=== PATIENT | male | born 1970 | race African-American/Black ===

== ENCOUNTER 2017-07-16 14:54 | Emergency (ER) | payer OTHER ==
[2017-07-16 15:46] LABS: ADD MAN DIFF? NO
[2017-07-16] MEDS: IV NORMAL SALINE 1000ML BAG 1,000 ML IV (15:47)
[2017-07-16] MEDS: diphenhydrAMINE 50 MG/ML VIAL IVP (15:48)
[2017-07-16] MEDS: DEXAMETHASONE SOD PHOS 20 MG/5 ML VIAL. IV (15:48)
[2017-07-16 15:50] LABS: BASO # 0.1 x10^3/uL (0.0-0.2); BASO % 1 % (0-3); EOS # 0.1 x10^3/uL (0.0-0.7); EOS % 1 % (0-3); HEMATOCRIT 37.2 % (39.0-53.0); HEMOGLOBIN 12.4 g/dL (13.0-17.5); LYMPH # 2.4 x10^3/uL (1.0-4.8); LYMPH % 18 % (24-48); MEAN CORPUSCULAR HEMOGLOBIN 32 pg (25-35); MEAN CORPUSCULAR HGB CONC 33 g/dL (31-37); MEAN CORPUSCULAR VOLUME 97 fL (79-100); MONO # 0.5 x10^3/uL (0.0-1.1); MONO % 4 % (0-9); NEUT % 77 % (31-73); PLATELET COUNT 277 x10^3/uL (140-400); RED BLOOD COUNT 3.84 x10^6/uL (4.30-5.70); RED CELL DISTRIBUTION WIDTH 12.5 % (11.5-14.5)
[2017-07-16] MEDS: ALBUTEROL SULFATE 2.5 MG/3 ML NEBU. NEB (15:55)
[2017-07-16 16:00] LABS: ANION GAP 9 (6-14); BLOOD UREA NITROGEN 14 mg/dL (8-26); CALCIUM 9.4 mg/dL (8.5-10.1); CARBON DIOXIDE 29 mmol/L (21-32); CHLORIDE 106 mmol/L (98-107); CREATININE 1.1 mg/dL (0.7-1.3); GFR 86.4; GLUCOSE 126 mg/dL (70-99); POTASSIUM 3.5 mmol/L (3.5-5.1); SODIUM 144 mmol/L (136-145)
== END 2017-07-16 17:13 | disposition home or self-care (01) ==
LOC: ER 14:54
DX: J18.9 Pneumonia, unspecified organism (principal); I10 Essential (primary) hypertension; Z86.73 Personal history of transient ischemic attack (TIA), and cerebral infarction without residual deficits
CPT/HCPCS: 36415; 71045; 80048; 85025; 93005; 96361; 96374; 96375; 99285-25; J1100; J1200; J7030; J7613

== ENCOUNTER 2017-10-27 20:13 | Emergency (ER) | payer OTHER ==
[2017-10-27 20:36] LABS: POC GLUCOSE 86 mg/dL (70-99)
[2017-10-27 20:46] LABS: ADD MAN DIFF? NO
[2017-10-27 20:51] LABS: BASO # 0.1 x10^3/uL (0.0-0.2); BASO % 1 % (0-3); EOS # 0.1 x10^3/uL (0.0-0.7); EOS % 1 % (0-3); HEMATOCRIT 36.3 % (39.0-53.0); HEMOGLOBIN 12.3 g/dL (13.0-17.5); LYMPH # 3.9 x10^3/uL (1.0-4.8); LYMPH % 32 % (24-48); MEAN CORPUSCULAR HEMOGLOBIN 34 pg (25-35); MEAN CORPUSCULAR HGB CONC 34 g/dL (31-37); MEAN CORPUSCULAR VOLUME 99 fL (79-100); MONO # 0.7 x10^3/uL (0.0-1.1); MONO % 6 % (0-9); NEUT # 7.5 x10^3uL (1.8-7.7); NEUT % 61 % (31-73); PLATELET COUNT 258 x10^3/uL (140-400); RED BLOOD COUNT 3.68 x10^6/uL (4.30-5.70); RED CELL DISTRIBUTION WIDTH 12.6 % (11.5-14.5); WHITE BLOOD COUNT 12.3 x10^3/uL (4.0-11.0)
[2017-10-27] MEDS: IV NORMAL SALINE 1000ML BAG 1,000 ML IV (20:53)
[2017-10-27 20:58] LABS: PROTHROMBIN TIME PATIENT 12.8 SEC (11.7-14.0)
[2017-10-27 20:59] LABS: ANION GAP 9 (6-14); BLOOD UREA NITROGEN 13 mg/dL (8-26); BUN/CREATININE RATIO 11 (6-20); CALCIUM 8.8 mg/dL (8.5-10.1); CARBON DIOXIDE 28 mmol/L (21-32); CHLORIDE 105 mmol/L (98-107); CREATININE 1.2 mg/dL (0.7-1.3); GFR 78.2; GLUCOSE 102 mg/dL (70-99); POTASSIUM 3.3 mmol/L (3.5-5.1); SODIUM 142 mmol/L (136-145)
[2017-10-27 21:07] LABS: ALBUMIN 3.6 g/dL (3.4-5.0); ALBUMIN/GLOBULIN RATIO 0.9 (1.0-1.7); ALK PHOS 94 U/L (46-116); ALT (SGPT) 21 U/L (16-63); AST (SGOT) 20 U/L (15-37); TOTAL BILIRUBIN 0.3 mg/dL (0.2-1.0); TOTAL PROTEIN 7.4 g/dL (6.4-8.2)
[2017-10-27 23:43] LABS: BILIRUBIN,URINE NEGATIVE (NEG); CLARITY,URINE CLEAR; COLOR,URINE STRAW; GLUCOSE,URINE NEGATIVE (NEG)
[2017-10-27 23:44] LABS: NITRITE,URINE NEGATIVE (NEG); PH,URINE 6.5; PROTEIN,URINE NEGATIVE (NEG-TRACE); UROBILINOGEN,URINE 0.2 mg/dL (0.2 mg/dL)
[2017-10-27 23:45] LABS: BACTERIA,URINE 0 /HPF (0-FEW); SQUAMOUS EPITHELIAL CELL,UR FEW /LPF; WBC,URINE 0 /HPF (0-4)
== END 2017-10-28 00:04 | disposition home or self-care (01) ==
LOC: ER 10-28 00:04
DX: R42 Dizziness and giddiness (principal); H70.90 Unspecified mastoiditis, unspecified ear; R11.2 Nausea with vomiting, unspecified; R51 Headache; R20.2 Paresthesia of skin; F12.10 Cannabis abuse, uncomplicated; I10 Essential (primary) hypertension; Z86.73 Personal history of transient ischemic attack (TIA), and cerebral infarction without residual deficits
CPT/HCPCS: 36415; 70450; 80053; 81001; 82962; 85025; 85610; 93005; 96361; 96374; 99285-25; J2060; J7030

== ENCOUNTER 2018-10-03 19:12 | Emergency (ER) | payer SELFPAY ==
[~2018-10-03] VITALS: Ht 180.3 cm; Wt 81.6 kg
[~2018-10-03 19:12] MED LIST: AMLO10TA8 PO; AMOX1TAB61 PO; CARV25TA2 PO; ERGO500027 PO; FOLI1TAB16 PO; LOSA100T14 PO; MECL12.52 PO; METH2.5T PO; METH4TAB2 PO; ONDA4TAB7 PO; PRED1TAB3 PO; VENTOLIN HFA18 GM INH
[2018-10-03] MEDS ORDERED: MECLIZINE HCL 12.5 MG TABLET. PO ONE (20:45)
[2018-10-03] MEDS ORDERED: IV NORMAL SALINE 1000ML BAG 1,000 ML IV ONE (20:45)
--- NOTE | 2018-10-03 21:02 | RAD ---
EXAM: Head CT without contrast. HISTORY: Dizziness. TECHNIQUE: Computed tomographic images of the head were obtained without contrast. *One or more of the following individualized dose reduction techniques were utilized for this examination: 1. Automated exposure control. 2. Adjustment of the mA and/or kV according to patient size. 3. Use of iterative reconstruction technique. COMPARISON: 10/27/2017. FINDINGS: There is no acute or subacute extra-axial or intraparenchymal hemorrhage. There is no mass effect or midline shift. There is no hydrocephalus. The ccsi-wwkiy-dbwzo matter differentiation pattern is intact. 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 There is fluid within the left mastoid air cells. There is minimal ethmoid sinus mucosal thickening. This is suspicious osseous lesion is seen IMPRESSION: No acute intracranial findings. Electronically signed by: eBckie Hu MD (10/03/2018 8:59 PM) [facility]
[2018-10-03] MEDS ORDERED: MECL25TA3 PO (21:10)
--- NOTE | 2018-10-03 21:11 | PHYS DOC ---
Past Medical History Past Medical History: Arthritis, CVA, Hypertension Additional Past Medical Histor: RA, OSTEOARTHITIS Past Surgical History: Other Additional Past Surgical Histo: Craniotomy Alcohol Use: None Drug Use: Marijuana Adult General Chief Complaint Chief Complaint: DIZZY/LIGHT HEADED HPI HPI 48-year-old male presents with approximately 12 hour history of dizziness. He states if he moves his head he feels like the room is spinning. This is caused him some nausea. He does state that he has a little bit of a headache but it's not severe. He denies any ringing in his ears. He has some associated nausea. He denies any lateralizing neurologic weakness.[] Review of Systems Review of Systems Constitutional: Denies fever or chills [] Eyes: Denies change in visual acuity, redness, or eye pain [] HENT: Denies nasal congestion or sore throat [] Respiratory: Denies cough or shortness of breath [] Cardiovascular: No additional information not addressed in HPI [] GI: Denies abdominal pain, nausea, vomiting, bloody stools or diarrhea [] : Denies dysuria or hematuria [] Musculoskeletal: Denies back pain or joint pain [] Integument: Denies rash or skin lesions [] Neurologic: Dizziness as described in the history of present illness] Endocrine: Denies polyuria or polydipsia [] All other systems were reviewed and found to be within normal limits, except as documented in this note. Current Medications Current Medications Current Medications Medications (Trade) Dose Ordered Sig/Bjorn Start Time Stop Time Status Last Admin Dose Admin Meclizine HCl (Antivert) 25 mg 1X ONCE 10/03/18 20:45 10/03/18 20:46 DC 10/03/18 20:53 25 MG Sodium Chloride 1,000 ml @ 1,000 mls/hr 1X ONCE 10/03/18 20:45 10/03/18 21:44 10/03/18 20:54 1,000 MLS/HR Allergies Allergies Allergies Coded Allergies Type Severity Reaction Last Updated Verified No Known Drug Allergies 07/16/17 No Physical Exam Physical Exam Constitutional: Well developed, well nourished, no acute distress, non-toxic appearance. [] HENT: Normocephalic, atraumatic, bilateral external ears normal, oropharynx moist, no oral exudates, nose normal. [] Eyes: PERRLA, EOMI, conjunctiva normal, no discharge. [] Neck: Normal range of motion, no tenderness, supple, no stridor. [] Cardiovascular:Heart rate regular rhythm, no murmur [] Lungs & Thorax: Bilateral breath sounds clear to auscultation [] Abdomen: Bowel sounds normal, soft, no tenderness, no masses, no pulsatile masses. [] Skin: Warm, dry, no erythema, no rash. [] Back: No tenderness, no CVA tenderness. [] Extremities: No tenderness, no cyanosis, no clubbing, ROM intact, no edema. [] Neurologic: Alert and oriented X 3, normal motor function, normal sensory function, no focal deficits noted. [] Psychologic: Anxious[] Current Patient Data Vital Signs Vital Signs Date Time Temp Pulse Resp B/P (MAP) Pulse Ox O2 Delivery O2 Flow Rate FiO2 10/03/18 19:20 98.6 84 16 128/73 (91) 97 Room Air 98.6 EKG EKG [] Radiology/Procedures Radiology/Procedures [] Impressions: PROCEDURE: CT HEAD WO CONTRAST EXAM: Head CT without contrast. HISTORY: Dizziness. TECHNIQUE: Computed tomographic images of the head were obtained without contrast. *One or more of the following individualized dose reduction techniques were utilized for this examination: 1. Automated exposure control. 2. Adjustment of the mA and/or kV according to patient size. 3. Use of iterative reconstruction technique. COMPARISON: 10/27/2017. FINDINGS: There is no acute or subacute extra-axial or intraparenchymal hemorrhage. There is no mass effect or midline shift. There is no hydrocephalus. The fwai-[id number]-ycqcs matter differentiation pattern is intact. 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 There is fluid within the left mastoid air cells. There is minimal ethmoid sinus mucosal thickening. This is suspicious osseous lesion is seen IMPRESSION: No acute intracranial findings. Course & Med Decision Making Course & Med Decision Making Pertinent Labs and Imaging studies reviewed. (See chart for details) [ED course: Evaluation reveals a 48-year-old male with vertiginous type symptoms. He was given IV fluids and meclizine during his stay in the department which did help alleviate his symptoms. I checked a CT scan just to make sure that he had no aneurysmal bleed given his previous history.] Dragon Disclaimer Dragon Disclaimer This electronic medical record was generated, in whole or in part, using a voice recognition dictation system. Departure Departure Impression: Primary Impression: Vertigo Disposition: 01 HOME, SELF-CARE Condition: IMPROVED Referrals: WALTER GUO (PCP) Patient Instructions: Benign Positional Vertigo, Vertigo Additional Instructions: Return to emergency permit any new or concerning symptoms Scripts Meclizine Hcl (MECLIZINE HCL) 25 Mg Tablet 1 TAB PO Q8HRS PRN for dizziness, #30 TAB 30 Refills Prov: STU GARCIA DO 10/03/18 STU GARCIA DO Oct 03, 2018 21:11
[2018-10-03 21:30] VITALS: BP 141/90
== END 2018-10-03 21:33 | disposition home or self-care (01) ==
LOC: ER 19:12
DX: R42 Dizziness and giddiness (principal); R51 Headache; R11.0 Nausea; I10 Essential (primary) hypertension; M19.90 Unspecified osteoarthritis, unspecified site; Z86.73 Personal history of transient ischemic attack (TIA), and cerebral infarction without residual deficits
CPT/HCPCS: 70450; 96360; 99284; J7030; J8597